=== PATIENT | male | born 1955 | race Caucasian/White ===

== ENCOUNTER 2017-03-15 20:29 | Inpatient (IN) | payer MEDICARE, OTHER ==
[~2017-03-15] VITALS: Ht 182.9 cm; Wt 76.2 kg
--- NOTE | 2017-03-15 20:35 | NUR ---
Medically cleared by Dr Honeycutt
[2017-03-15] MEDS ORDERED: TRIH2TAB4 PO (20:36)
[2017-03-15] MEDS ORDERED: DIVA250T4 PO (20:36)
[2017-03-15] MEDS ORDERED: LORA2TAB95 PO (20:36)
[2017-03-15] MEDS ORDERED: CHLO25TA13 PO (20:36)
--- NOTE | 2017-03-15 21:25 | NUR ---
[place] [facility]
--- NOTE | 2017-03-15 21:40 | NUR ---
GPS: 61 YEAR OLD CAUSATION MALE ADMITTED FROM ER [place]IA [place] TO MHU ROOM 145 A. ALERT AND ORIENTED X3,AMBULATORY. DX: PSYCHOSIS/DTS, ON 72 HRS HOLD. NO C/O PAIN OR DISCOMFORT THIS TIME.PATIENT IS ANXIOUS STATED I HAVE AUDITORY HALLUCINATION. I HEAR VOICES. DENIES SI THIS TIME. ATIVAN 1 MG GIVEN FOR ANXIETY.V/S WNL. CONTINUE MONITORING FOR SAFETY.
[2017-03-15] MEDS ORDERED: MAGNESIUM HYDROXIDE 30 ML LIQUID UDC PO PRN (21:45)
[2017-03-15] MEDS ORDERED: LORAZEPAM 0.5 MG TABLET PO PRN (21:45)
[2017-03-15] MEDS ORDERED: ACETAMINOPHEN 325 MG TABLET PO PRN (21:45)
--- NOTE | 2017-03-15 22:03 | NUR ---
gps: patient received from er very agitated hyperverbal to staff. ativan 1 mg po given.
[2017-03-15] MEDS ORDERED: LORAZEPAM 1 MG TABLET ONE (22:12)
[2017-03-15] MEDS ORDERED: TEMAZEPAM 7.5 MG CAPSULE ONE (22:13)
[2017-03-15 22:50] VITALS: BP 124/92
--- NOTE | 2017-03-15 23:03 | NUR ---
gps: patient is calm and cooperative. prn effective for agitation.
[2017-03-16] MEDS: MAG HYDROX/AL HYDROX/SIMETH 30 ML LIQUID UDC PO PRN ×2 (02:09→20:03)
[2017-03-16] MEDS ORDERED: MAG HYDROX/AL HYDROX/SIMETH 30 ML LIQUID UDC ONE (02:22)
--- NOTE | 2017-03-16 02:25 | NUR ---
gps: patient c/o abdominal pain.maalox 30 ml po given.
--- NOTE | 2017-03-16 03:25 | NUR ---
gps: patient stated i am feeling better .prn for abdominal effective.
--- NOTE | 2017-03-16 06:58 | NUR ---
GPS: REMAIN CALM AND COOPERATIVE WITH MEDS AND CARE. SHOWERED THIS MORNING. NO AGITATION NOTED CONTINUE PLAN OF CARE.
[2017-03-16 07:30] VITALS: BP 124/89
[2017-03-16] MEDS: LORAZEPAM 1 MG TABLET PO PRN ×2 (07:48→20:51)
--- NOTE | 2017-03-16 07:49 | NUR ---
GPS RN PT NOTED WITH INCREASE AGITATION. CAME UP TO NURSING STATION FIXATED ABOUT HIS BELONGINGS LEFT IN [facility]. UNABLE TO REDIRECT. ATIVAN 1MG GIVEN ORDERED. WILL CONTINUE TO MONITOR.
[2017-03-16] MEDS ORDERED: LORAZEPAM 1 MG TABLET ONE (08:02)
[2017-03-16 15:35] LABS: *BILIRUBIN,URIN NEGATIVE (NEGATIVE); *BLOOD, URINE NEGATIVE (NEGATIVE); *CLARITY,URINE SLIGHTLY CLOUDY (CLEAR); *COLOR,URINE YELLOW (YELLOW); *KETONES,URINE NEGATIVE (NEGATIVE); *PROTEIN,URINE NEGATIVE (NEGATIVE); *UROBILINOGEN,URINE 0.2 E.U./dl (NORMAL); LEUKOCYTE ESTERASE ,URINE NEGATIVE (NEGATIVE); NITRITE, URINE NEGATIVE (NEGATIVE); UGLUCOSE NEGATIVE (NEGATIVE)
[2017-03-16 16:08] LABS: MUCUS,URINE MODERATE /LPF (0-FEW); SQUAMOUS EPITHELIAL CELL,UR FEW /HPF (NONE SEEN); URINE AMORPHOUS PHOSPHATES MODERATE /HPF; WBC,URINE 0-3 /HPF (0-3)
[2017-03-16 16:53] VITALS: BP 114/81
--- NOTE | 2017-03-16 20:03 | NUR ---
GPS: RECEIVED PATIENT SITTING IN CHAIR NEAR THE NURSING STATION.C/O ABDOMINAL PAIN. MAALOX 30 ML PO GIVEN. PLEASANT UPON APPROACH. NO AGITATION NOTED.DENIES SI AT THIS TIME.CONTINUE MONITORING FOR SAFETY.
[2017-03-16 20:46] VITALS: BP 134/96
--- NOTE | 2017-03-16 20:51 | NUR ---
gps: patient screaming to staff saying i need help. i am sick.doctor not giving me medication. i want go home. ativan 1 mg po given for agitation per patient request.
[2017-03-16] MEDS: DIVALPROEX 250 MG TABLET.DR PO SCH (21:05)
[2017-03-16] MEDS: chlorproMAZINE 25 MG TABLET PO SCH (21:06)
[2017-03-16] MEDS: TRIHEXYPHENIDYL HCL 2 MG TABLET PO SCH ×3 (21:06→21:16)
[2017-03-16] MEDS ORDERED: chlorproMAZINE 25 MG TABLET ONE (21:17)
[2017-03-16] MEDS ORDERED: DIVALPROEX 250 MG TABLET.DR PO ONE (21:18)
[2017-03-16] MEDS ORDERED: TRIHEXYPHENIDYL HCL 2 MG TABLET ONE (21:18)
--- NOTE | 2017-03-16 21:51 | NUR ---
GPS: PATIENT IS CALM NOW. NO MORE AGITATION. PRN ATIVAN FOR AGITATION EFFECTIVE.
--- NOTE | 2017-03-17 06:36 | NUR ---
GPS: REMAIN CALM AND COOPERATIVE AFTER ATIVAN GIVEN X1. C/O ABDOMINAL PAIN X1 MAALOX 30 ML PO GIVEN AND EFFECTIVE. SLEPT 6 HRS THROUGH THE NIGHT. CONTINUE PLAN OF CARE.
[2017-03-17 07:24] LABS: BASOPHILS # (AUTO) 0.1 K/uL (0.0-8.0); BASOPHILS % (AUTO) 0.5 % (0.0-2.0); EOSINOPHILS # (AUTO) 0.2 K/uL (0.0-0.7); EOSINOPHILS % (AUTO) 1.8 % (0.0-7.0); HEMATOCRIT 35.9 % (36.7-47.1); HEMOGLOBIN 12.6 g/dL (12.5-16.3); LYMPHOCYTES # (AUTO) 2.3 K/uL (20.0-40.0); LYMPHOCYTES % (AUTO) 18.1 % (20.5-51.5); MEAN CORPUSCULAR HEMOGLOBIN 29.7 uug (23.8-33.4); MEAN CORPUSCULAR HGB CONC 35 g/dL (32.5-36.3); MEAN CORPUSCULAR VOLUME 84.7 fL (73.0-96.2); MONOCYTES # (AUTO) 0.7 K/uL (2.0-10.0); MONOCYTES % (AUTO) 5.3 % (0.0-11.0); NEUTROPHILS # (AUTO) 9.4 K/uL (1.8-8.9); NEUTROPHILS % (AUTO) 74.3 % (38.5-71.5); PLATELET COUNT (AUTO) 301 K/uL (152-348); RED BLOOD CELL COUNT(AUTO) 4.24 MIL/uL (4.06-5.63); WHITE BLOOD COUNT (AUTO) 12.6 K/uL (3.6-10.2)
[2017-03-17 07:30] VITALS: BP 98/60
[2017-03-17 07:39] LABS: BILIRUBIN,TOTAL 0.2 mg/dL (0.2-1.0); CREATININE 0.9 mg/dL (0.6-1.3); MAGNESIUM 2.2 mg/dL (1.8-2.4); PHOSPHOROUS 3.3 mg/dL (2.5-4.9); POTASSIUM 3.7 mmol/L (3.5-5.1); TOTAL PROTEIN, SERUM 6.9 g/dL (6.4-8.2)
[2017-03-17] MEDS: DIVALPROEX 250 MG TABLET.DR PO SCH ×4 (09:00→20:01)
[2017-03-17] MEDS: TRIHEXYPHENIDYL HCL 2 MG TABLET PO SCH ×4 (09:00→20:01)
[2017-03-17] MEDS: chlorproMAZINE 25 MG TABLET PO SCH ×4 (09:00→20:05)
[2017-03-17] MEDS: LORAZEPAM 1 MG TABLET PO PRN ×3 (09:07→23:30)
[2017-03-17 09:34] LABS: THYROID STIMULATING HORMONE 1.773 mIU/mL (0.358-3.740)
[2017-03-17] MEDS: MAG HYDROX/AL HYDROX/SIMETH 30 ML LIQUID UDC PO PRN (09:57)
[2017-03-17] MEDS: ONDANSETRON ODT 4 MG TAB.RAPDIS SL PRN ×2 (13:02→19:13)
[2017-03-17 16:45] VITALS: BP 113/78
[2017-03-17 20:25] VITALS: BP 97/72
--- NOTE | 2017-03-17 20:53 | NUR ---
PATIENT RECEIVED IN ACTIVITIES ROOM. PATIENT CALM AND COOPERATIVE. HYPERVERBAL BUT ABLE TO REDIRECT. NO AGGRESSIVE BEHAVIOR NOTED, HOWEVER IS UNPREDICTABLE WILL CONTINUE TO MONITOR AND REDIRECT NEEDED. PATIENT DENIES SI/AH/VH WILL CONTINUE TO MONITOR AND REDIRECT NEEDED. PATIENT DENIES PAIN AT THIS TIME, WILL CONTINUE TO MONITOR.
[2017-03-17] MEDS: TEMAZEPAM 7.5 MG CAPSULE PO PRN (22:26)
[2017-03-18] MEDS: ONDANSETRON ODT 4 MG TAB.RAPDIS SL PRN ×3 (01:25→20:14)
[2017-03-18] MEDS: MAG HYDROX/AL HYDROX/SIMETH 30 ML LIQUID UDC PO PRN ×2 (04:13→22:03)
[2017-03-18 07:30] VITALS: BP 111/70
[2017-03-18] MEDS: chlorproMAZINE 25 MG TABLET PO SCH ×3 (08:18→20:02)
[2017-03-18] MEDS: LORAZEPAM 1 MG TABLET PO PRN ×2 (08:18→13:55)
[2017-03-18] MEDS: DIVALPROEX 250 MG TABLET.DR PO SCH ×3 (08:18→20:02)
[2017-03-18] MEDS: TRIHEXYPHENIDYL HCL 2 MG TABLET PO SCH ×3 (08:19→20:02)
--- NOTE | 2017-03-18 13:38 | NUR ---
Initial DC Plan: Patient reported that he currently resides at his girlfriend's apartment [[address] [place] [address]] and plans to return there. SW will follow up with MD and patient to discuss most appropriate discharge plans. SW will form a safe and proper discharge.
--- NOTE | 2017-03-18 14:04 | NUR ---
Regulatory Auditor: Blood Bank Laboratory Professional submitted Firearms Mental Health Report to [employer]J on 03/18.
[2017-03-18] MEDS: MULTIVITAMINS,THERAPEUTIC TABLET PO SCH (14:48)
[2017-03-18 17:13] VITALS: BP 110/75
[2017-03-18] MEDS: HYDROCODONE/APAP 5-325MG TABLET PO PRN (18:37)
[2017-03-18 20:32] VITALS: BP 119/64
[2017-03-18] MEDS: TEMAZEPAM 7.5 MG CAPSULE PO PRN (22:38)
[2017-03-19] MEDS: LORAZEPAM 1 MG TABLET PO PRN ×2 (03:55→08:30)
[2017-03-19] MEDS: MAG HYDROX/AL HYDROX/SIMETH 30 ML LIQUID UDC PO PRN ×2 (07:26→20:00)
[2017-03-19 07:54] VITALS: BP 104/74
[2017-03-19] MEDS: MULTIVITAMINS,THERAPEUTIC TABLET PO SCH (08:31)
[2017-03-19] MEDS: chlorproMAZINE 25 MG TABLET PO SCH ×3 (08:31→20:02)
[2017-03-19] MEDS: HYDROCODONE/APAP 5-325MG TABLET PO PRN (08:31)
[2017-03-19] MEDS: DIVALPROEX 250 MG TABLET.DR PO SCH ×3 (08:31→20:01)
[2017-03-19] MEDS: ONDANSETRON ODT 4 MG TAB.RAPDIS SL PRN ×2 (08:31→20:03)
[2017-03-19] MEDS: TRIHEXYPHENIDYL HCL 2 MG TABLET PO SCH ×3 (08:32→20:08)
[2017-03-19 16:47] VITALS: BP 110/66
[2017-03-19 20:00] VITALS: BP 119/82
[2017-03-20] MEDS: MAG HYDROX/AL HYDROX/SIMETH 30 ML LIQUID UDC PO PRN ×2 (00:45→03:54)
[2017-03-20] MEDS: ONDANSETRON ODT 4 MG TAB.RAPDIS SL PRN (02:06)
--- NOTE | 2017-03-20 06:05 | NUR ---
Patient continue complaining of nausea, Zofran 4mg PO PRN was given at approx 2000 last night 03/19/17. After an hour Pt stated that he felt "better". Then at approx 0200, he complained of nausea and vomiting. Zofran 4mg PO PRN was given at approx 0200. After one hour nausea and vomiting stopped; however, at approx 0430 patient continue complaining of nausea and vomiting. Mylanta PO PRN was given. His V/S: B/P 108/62; pulse 78; respiration 18; oral temp 97.3F and SPO2 94%. He aslo had a formed BM. and he stated having mild abdominal discomfort. Dr. Martinez, who was the doctor property preservation specialist, was notify of findings at approx 0555 and received a call back at approx 0600 and new order were given to administer Reglan 5mg PO Q6HRS PRN for nausea and vomiting. order were noted. awaiting for pharmacy to verify new order.
[2017-03-20] MEDS ORDERED: METOCLOPRAMIDE HCL 5 MG TABLET PO PRN (06:15)
[2017-03-20] MEDS ORDERED: METOCLOPRAMIDE HCL 10 MG TABLET ONE (06:55)
[2017-03-20 07:30] VITALS: BP 116/87
[2017-03-20] MEDS: TRIHEXYPHENIDYL HCL 2 MG TABLET PO SCH ×3 (08:00→21:42)
[2017-03-20] MEDS: chlorproMAZINE 25 MG TABLET PO SCH ×3 (08:00→21:42)
[2017-03-20] MEDS: MULTIVITAMINS,THERAPEUTIC TABLET PO SCH (08:00)
[2017-03-20] MEDS: DIVALPROEX 250 MG TABLET.DR PO SCH ×3 (08:01→21:41)
[2017-03-20] MEDS: LORAZEPAM 1 MG TABLET PO PRN (10:40)
--- NOTE | 2017-03-20 14:45 | NUR ---
DR GARCES PAGED, AWAITING CALL BACK.
--- NOTE | 2017-03-20 15:15 | NUR ---
DR SANCHES ON UNIT TO SEE A DIFFERENT PT, AND TRACEY IS ARGUING WITH DR SANCHES, POSTURING, VERBALLY THREATENING OTHERS, NOT REDIRECTABLE. DR SANCHES GAVE ORDER FOR IM, GIVEN PER P/P.
[2017-03-20] MEDS ORDERED: diphenhydrAMINE 50 MG/1 ML VIAL IM STA (15:26)
[2017-03-20] MEDS ORDERED: OLANZAPINE 10 MG VIAL IM STA (15:26)
[2017-03-20] MEDS ORDERED: LORAZEPAM 2 MG/1 ML VIAL IM STA (15:26)
--- NOTE | 2017-03-20 15:30 | NUR ---
Pt noted to be highly agitated and confused. Refusing to let go of lunch tray which he hasn't touched. Screaming/yelling, highly unpredictable, unredirectable, at nurses station verbally abusive towards staff. Posturing at staff threatening violence. Obtained IM order. Noted and will carry out.
[2017-03-20 15:57] VITALS: BP 105/60
[2017-03-20 20:39] VITALS: BP 108/76
--- NOTE | 2017-03-21 06:51 | NUR ---
PATIENT SLEPT FOR APPROX 9 HRS THROUGH THE NIGHT. HE WAS NOTED CALM AT THIS TIME. SHOWER WAS OFFERED THIS MORNING; HOWEVER, HE REFUSED. HE SAID "LATER"
[2017-03-21 07:30] VITALS: BP 113/81
[2017-03-21] MEDS: chlorproMAZINE 25 MG TABLET PO SCH ×3 (10:32→21:04)
[2017-03-21] MEDS: TRIHEXYPHENIDYL HCL 2 MG TABLET PO SCH ×3 (10:32→21:03)
[2017-03-21] MEDS: DIVALPROEX 250 MG TABLET.DR PO SCH ×3 (10:32→21:03)
[2017-03-21] MEDS: MULTIVITAMINS,THERAPEUTIC TABLET PO SCH (10:32)
[2017-03-21] MEDS: ONDANSETRON ODT 4 MG TAB.RAPDIS SL PRN (10:39)
--- NOTE | 2017-03-21 10:40 | NUR ---
PATIENT COMPLAINED OF NAUSEA MEDICATED WITH ZOFRAN ORDERED AND WILL OBSERVE.
[2017-03-21 15:00] VITALS: BP 109/80
[2017-03-21] MEDS: LORAZEPAM 1 MG TABLET PO PRN (17:51)
--- NOTE | 2017-03-21 18:16 | NUR ---
GETTING AGITATED PACING TRYING TO MAKE CALLS MEDICATED WITH ATIVAN ORDERED WILL CONTINUE TO OBSERVE.
[2017-03-21 20:45] VITALS: BP 109/80
[2017-03-21] MEDS: HYDROCODONE/APAP 5-325MG TABLET PO PRN (21:16)
--- NOTE | 2017-03-21 22:00 | NUR ---
received to care, isolative, but pleasant upon approach. PRN norco was given at 2115, for lower abdominal pain 12/20. as of 2199, he appears to be asleep. no distress noted. will continue to monitor closely.
--- NOTE | 2017-03-22 06:00 | NUR ---
slept 6.5 hours. continues to sleep. no distress noted.
[2017-03-22 07:30] VITALS: BP 108/69
[2017-03-22] MEDS: MULTIVITAMINS,THERAPEUTIC TABLET PO SCH (08:48)
[2017-03-22] MEDS: TRIHEXYPHENIDYL HCL 2 MG TABLET PO SCH ×3 (08:48→20:31)
[2017-03-22] MEDS: chlorproMAZINE 25 MG TABLET PO SCH ×3 (08:48→20:32)
[2017-03-22] MEDS: DIVALPROEX 250 MG TABLET.DR PO SCH ×2 (08:48→13:29)
[2017-03-22 15:00] VITALS: BP 121/86
[2017-03-22 19:51] VITALS: BP 118/76
[2017-03-22] MEDS: DIVALPROEX 500 MG TABLET.DR PO SCH (20:32)
[2017-03-22] MEDS: HYDROCODONE/APAP 10-325 MG TABLET PO PRN (20:36)
--- NOTE | 2017-03-22 22:00 | NUR ---
received to care, pleasant, but isolative. PRN norco was given at 2035, for lower abdominal pain 12/20. as of 2199, he appears to be asleep. no distress noted. will continue to monitor closely.
[2017-03-23] MEDS: HYDROCODONE/APAP 10-325 MG TABLET PO PRN ×4 (03:04→23:31)
--- NOTE | 2017-03-23 06:00 | NUR ---
slept 5.5 hours total. assisted with AM care, and shower. no distress noted.
[2017-03-23 07:30] VITALS: BP 125/82
[2017-03-23] MEDS: MULTIVITAMINS,THERAPEUTIC TABLET PO SCH (08:11)
[2017-03-23] MEDS: TRIHEXYPHENIDYL HCL 2 MG TABLET PO SCH ×3 (08:11→20:30)
[2017-03-23] MEDS: DIVALPROEX 250 MG TABLET.DR PO SCH ×2 (08:11→12:36)
[2017-03-23] MEDS: chlorproMAZINE 25 MG TABLET PO SCH ×3 (08:11→20:29)
[2017-03-23] MEDS: MAG HYDROX/AL HYDROX/SIMETH 30 ML LIQUID UDC PO PRN (12:36)
[2017-03-23 20:16] VITALS: BP 120/70
[2017-03-23] MEDS: DIVALPROEX 500 MG TABLET.DR PO SCH (20:29)
--- NOTE | 2017-03-23 22:00 | NUR ---
received to care, mostly isolating in room, interacting with select peers and staff, pleasant upon approach. compliant with medications and staff direction, including limit setting. as of 2200, he appears to be asleep. no distress noted. will continue to monitor closely.
--- NOTE | 2017-03-23 23:31 | NUR ---
PRN norco given for lower abdominal pain 11/19.
[2017-03-24] MEDS: HYDROCODONE/APAP 10-325 MG TABLET PO PRN (05:34)
--- NOTE | 2017-03-24 06:00 | NUR ---
slept 5.5 hours total. no distress noted.
[2017-03-24 07:30] VITALS: BP 124/80
[2017-03-24] MEDS: LORAZEPAM 1 MG TABLET PO PRN (08:30)
[2017-03-24] MEDS: DIVALPROEX 250 MG TABLET.DR PO SCH ×2 (08:35→12:17)
[2017-03-24] MEDS: chlorproMAZINE 25 MG TABLET PO SCH ×3 (08:35→20:19)
[2017-03-24] MEDS: TRIHEXYPHENIDYL HCL 2 MG TABLET PO SCH ×3 (08:35→20:19)
[2017-03-24] MEDS: MULTIVITAMINS,THERAPEUTIC TABLET PO SCH (08:35)
[2017-03-24] MEDS: HYDROCODONE/APAP 5-325MG TABLET PO PRN ×2 (12:18→18:19)
[2017-03-24 16:45] VITALS: BP 101/63
[2017-03-24 19:49] VITALS: BP 102/69
[2017-03-24] MEDS: DIVALPROEX 500 MG TABLET.DR PO SCH (20:20)
[2017-03-24] MEDS: TEMAZEPAM 7.5 MG CAPSULE PO PRN (22:59)
--- NOTE | 2017-03-24 22:59 | NUR ---
PRN restoril given for insomnia.
--- NOTE | 2017-03-24 23:30 | NUR ---
appears to be asleep. no distress noted.
[2017-03-25] MEDS: HYDROCODONE/APAP 5-325MG TABLET PO PRN ×2 (01:01→08:22)
--- NOTE | 2017-03-25 01:01 | NUR ---
PRN norco given for lower abdominal pain 12/20.
--- NOTE | 2017-03-25 01:30 | NUR ---
appears to be asleep. no distress noted.
--- NOTE | 2017-03-25 05:00 | NUR ---
slept 6.5 hours, total. is now awake, demanding norco. he was told that it was not due yet, and he became verbally abusive, insulting staff, and attempting to split staff. he mentioned last night that he wanted to have his discharge postponed, because he doesnt have any norco. now he is being disruptive, and demanding that the doctor give him an injection. limits set on behavior. will continue to monitor closely.
--- NOTE | 2017-03-25 06:00 | NUR ---
pt is calmer, now. requested to take a shower, so staff set the shower up for him. he then stated he didnt want to shower, "i just wanted to make that fat fker do extra work" a few minutes later, he stated he was going to report staff for refusing to let him shower.
[2017-03-25 07:30] VITALS: BP 110/79
[2017-03-25] MEDS: TRIHEXYPHENIDYL HCL 2 MG TABLET PO SCH (08:21)
[2017-03-25] MEDS: DIVALPROEX 250 MG TABLET.DR PO SCH (08:22)
[2017-03-25] MEDS: MULTIVITAMINS,THERAPEUTIC TABLET PO SCH (08:22)
[2017-03-25] MEDS: LORAZEPAM 1 MG TABLET PO PRN (08:22)
[2017-03-25] MEDS: chlorproMAZINE 25 MG TABLET PO SCH (08:22)
--- NOTE | 2017-03-25 10:01 | NUR ---
DC Note: Patient will be discharged to his girlfriend's home [[address] [place] [address]] via taxi at 1pm. SW spoke with patient's girlfriend Alexandra [[phone]] who is aware and agreeable to discharge plans. Patient is aware and agreeable to discharge plans. Patient was referred to [facility] [phone] for Clinical Faculty referrals. Patient was provided with outpatient mental health resources to [facility] , [facility] , and the [place] Suicide Prevention Lifeline . Patient was also provided a list of referrals for outpatient psychiatrists including Dr. Hodges [[phone]], Dr. Luciano [[phone]], and Dr. Abreu [[phone]]. Patient was provided a brief substance abuse intervention. He was provided outpatient substance abuse referrals to [facility] [[phone]], [facility] for Drug and Alcohol Abuse [[phone]]. and [facility] [[phone]]. Patient was encouraged to present at [facility] on 03/26 at 10am for intake.
--- NOTE | 2017-03-25 11:07 | NUR ---
GPS: Nursing Notes: Discharge Notes: Patient is awake and responding to his name, cooperative with nursing care, compliant with his medications, denies any SI/HI, denies any AH/VH, denies any pain or discomfort, denies any SOB, discharge to his girlfriend's home (Alexandra) at [address], [place] [address] , prescription and instructions given to patient, transported via [employer] taxi, took all his belongings with him. Patient was referred to [facility] [phone] for Hybrid Derivatives Trader referrals. Patient was provided with outpatient mental health resources to [facility] Crisis Line , [facility] , and the [place] Suicide Prevention Lifeline . Patient was also provided a list of referrals for outpatient psychiatrists including Dr. Hodges [[phone]], Dr. Luciano [[phone]], and Dr. Abreu [[phone]]. Patient was provided a brief substance abuse intervention. He was provided outpatient substance abuse referrals to [facility] [[phone]], [facility] for Drug and Alcohol Abuse [[phone]]. and [facility] [employer] [facility] [[phone]]. Patient was encouraged to present at [facility] on 03/26 at 10am for intake.
== END 2017-03-25 11:00 | disposition home or self-care (01) | DRG 885 ==
LOC: ER 20:29 → GPS 21:19
PROVIDERS: ADMIT Psychiatry & Neurology Psychiatry; ATTEND Internal Medicine
DX: F25.1 Schizoaffective disorder, depressive type (principal); E88.09 Other disorders of plasma-protein metabolism, not elsewhere classified; K57.92 Diverticulitis of intestine, part unspecified, without perforation or abscess without bleeding; F14.10 Cocaine abuse, uncomplicated; K40.90 Unilateral inguinal hernia, without obstruction or gangrene, not specified as recurrent; K44.9 Diaphragmatic hernia without obstruction or gangrene; Z87.81 Personal history of (healed) traumatic fracture; Z91.5 Personal history of self-harm; Z79.899 Other long term (current) drug therapy; K59.00 Constipation, unspecified; D72.829 Elevated white blood cell count, unspecified; N40.0 Benign prostatic hyperplasia without lower urinary tract symptoms
CPT/HCPCS: 36415; 71010; 74000; 80164; 83735; 84100; 84153; 84443; 85025; 87086; 93005; A4663; J1200; J2060; J2358; J3490; J8597; Q0161; Q0162

== ENCOUNTER 2017-05-24 14:30 | Inpatient (IN) | payer MEDICARE, OTHER ==
[~2017-05-24] VITALS: Ht 182.9 cm; Wt 77.1 kg
--- NOTE | 2017-05-24 14:40 | NUR ---
Pt was triaged, pt is in hallway in t ambulance [facility] as there are no ER beds available at this time.
[2017-05-24] MEDS ORDERED: LORA-258 PO (14:54)
[2017-05-24] MEDS ORDERED: TRIH2TAB4 PO (14:54)
[2017-05-24] MEDS ORDERED: DIVA250T4 PO (14:54)
[2017-05-24] MEDS ORDERED: CHLO25TA13 PO (14:54)
--- NOTE | 2017-05-24 17:30 | NUR ---
hospital tray provided per pt request. pt finished with good apetite
--- NOTE | 2017-05-24 18:24 | NUR ---
pt transfered to floor in stable condition
[2017-05-24 18:35] VITALS: BP 97/56
[2017-05-24 18:37] VITALS: BP 97/56
[2017-05-24] MEDS ORDERED: ACETAMINOPHEN 325 MG TABLET PO PRN (18:45)
[2017-05-24] MEDS ORDERED: MAGNESIUM HYDROXIDE 30 ML LIQUID UDC PO PRN (18:45)
--- NOTE | 2017-05-24 18:46 | NUR ---
1830RECEIVED PATIENT FROM ER PER W/C ALERT AND OX2, ABLE TO VERBALIZED NEEDS. RESPIRATION EVEN AN UNLABORED NO S/S ACUTE DISTRESS V/STAKEN AND RECORDED. PATIENT CALM AND COOPERATIVE WHEN CARE RENDERED. PATIENT AMBULTE INDEPENDENTLY WITHOUT RELOCATION SERVICES SPECIALIST, USE RESTROOM VOIDING FREELY. 184 DINNER SERVED WITH SANDWICH AND 2 8 OZ OF MILK. 1900 REPORT GIVEN TO NEXT SHIFT .
[2017-05-24] MEDS: LORAZEPAM 0.5 MG TABLET PO PRN (20:56)
--- NOTE | 2017-05-24 20:59 | NUR ---
GPS: PATIENT C/O ANXIETY. ATIVAN 0.5 MG PO GIVEN FOR ANXIETY.
--- NOTE | 2017-05-24 22:00 | NUR ---
GPS: PATIENT IS CALM NOW. PRN FOR ANXIETY EFFECTIVE.
[2017-05-25] MEDS: MAG HYDROX/AL HYDROX/SIMETH 30 ML LIQUID UDC PO PRN (03:10)
--- NOTE | 2017-05-25 06:14 | NUR ---
GPS: REMAIN CALM AND COOPERATIVE WITH MEDICATION AND CARE. C/O ABDOMINAL PAIN. MYLANTA 30 ML PO GIVEN.AND EFFECTIVE. SLEPT 07:30 HRS THROUGH THE NIGHT.
[2017-05-25 07:30] VITALS: BP 121/70
[2017-05-25] MEDS: chlorproMAZINE 25 MG TABLET PO SCH ×4 (13:00→17:31)
[2017-05-25] MEDS ORDERED: DIVALPROEX ER 250 MG TAB.SR.24H PO SCH (13:00)
[2017-05-25] MEDS ORDERED: TRIHEXYPHENIDYL HCL 5 MG TABLET PO SCH ×2 (13:40→18:00)
[2017-05-25] MEDS ORDERED: TRIHEXYPHENIDYL HCL 2 MG TABLET PO SCH (13:46)
[2017-05-25] MEDS: DIVALPROEX 250 MG TABLET.DR PO SCH ×2 (13:52→17:31)
[2017-05-25] MEDS: TRIHEXYPHENIDYL HCL 2 MG TABLET PO SCH ×2 (14:04→17:30)
[2017-05-25] MEDS: HYDROCODONE/APAP 5-325MG TABLET PO PRN ×2 (15:04→21:04)
--- NOTE | 2017-05-25 15:43 | NUR ---
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
[2017-05-25 16:45] VITALS: BP 123/66
[2017-05-25 20:14] VITALS: BP 117/71
[2017-05-25] MEDS: TEMAZEPAM 7.5 MG CAPSULE PO PRN (22:52)
[2017-05-26] MEDS: LORAZEPAM 0.5 MG TABLET PO PRN ×4 (00:51→17:15)
[2017-05-26] MEDS: HYDROCODONE/APAP 5-325MG TABLET PO PRN ×5 (03:04→21:16)
[2017-05-26 07:16] LABS: BASOPHILS % (AUTO) 0.8 % (0.0-2.0); BILIRUBIN,TOTAL 0.1 mg/dL (0.2-1.0); CREATININE 0.8 mg/dL (0.6-1.3); HEMATOCRIT 28.7 % (36.7-47.1); HEMOGLOBIN 9.4 g/dL (12.5-16.3); MEAN CORPUSCULAR HEMOGLOBIN 26.2 uug (23.8-33.4); MEAN CORPUSCULAR HGB CONC 33 g/dL (32.5-36.3); MEAN CORPUSCULAR VOLUME 79.8 fL (73.0-96.2); MONOCYTES % (AUTO) 10.3 % (0.0-11.0); NEUTROPHILS % (AUTO) 61.9 % (38.5-71.5); PHOSPHOROUS 4.1 mg/dL (2.5-4.9); PLATELET COUNT (AUTO) 283 K/uL (152-348); POTASSIUM 4.2 mmol/L (3.5-5.1); TOTAL PROTEIN, SERUM 5.9 g/dL (6.4-8.2)
[2017-05-26 07:17] LABS: BASOPHILS # (AUTO) 0.1 K/uL (0.0-8.0); EOSINOPHILS # (AUTO) 0.3 K/uL (0.0-0.7); LYMPHOCYTES # (AUTO) 1.5 K/uL (20.0-40.0); MONOCYTES # (AUTO) 0.7 K/uL (2.0-10.0)
[2017-05-26 07:30] VITALS: BP_SYST 107; BP_SYST 121; BP_DIAS 69; BP_DIAS 76
[2017-05-26 07:31] LABS: WHITE BLOOD COUNT (AUTO) 6.5 K/uL (3.6-10.2)
[2017-05-26 08:49] LABS: THYROID STIMULATING HORMONE 1.814 mIU/mL (0.358-3.740)
[2017-05-26] MEDS: chlorproMAZINE 25 MG TABLET PO SCH ×3 (08:50→17:17)
[2017-05-26] MEDS: DIVALPROEX 250 MG TABLET.DR PO SCH ×3 (08:50→17:14)
[2017-05-26] MEDS: TRIHEXYPHENIDYL HCL 2 MG TABLET PO SCH ×3 (08:50→17:14)
[2017-05-26 11:57] LABS: IRON, SERUM 12 ug/dL (50-175)
[2017-05-26] MEDS: MULTIVITAMINS,THERAPEUTIC TABLET PO SCH (12:48)
[2017-05-26] MEDS: FERROUS SULFATE 325 MG TABEC PO SCH ×2 (14:01→21:15)
[2017-05-26 16:11] VITALS: BP 99/54
[2017-05-26] MEDS ORDERED: PNEUMOCOCCAL 23-VAL P-SAC VAC 0.5 ML VIAL IM ONE (18:00)
[2017-05-26] MEDS ORDERED: INFLUENZA VACCINE 2017-2018 0.5 ML DISP.SYRIN IM ONE (18:00)
[2017-05-26 20:00] VITALS: BP 110/67
--- NOTE | 2017-05-26 21:30 | NUR ---
RECEIVED PATIENT IN THE DAY ROOM WATCHING TV. HE IS A/O X 2. ABLE TO MAKE HIS NEEDS KNOW AND ABLE TO WALK WITH STEADY GAIT. PATIENT PRESENTS WITH SI. HE STATED, " SI, IT IS ALWAYS IN MY MIND." HE DENIES HAVING A PLAN AND HE IS ABLE TO CFS. HE STATED, "I AM THANKFUL FOR THIS HOSPITAL, IT HAS SAVE ME FORM KILLING MYSELF AND IT HAS HELP ME A LOT". "I FEEL SAVE HERE. I AM OKAY TO BE HERE IN A 14 DAYS HOLD". PT DENIES AH OR VH AT THIS TIME. PATIENT C/O ABDOMINAL HERNIA PAIN 11/19. NORCO 5/350 WAS GIVEN AT APPROX 2120. WILL CONTINUE TO MONITOR.
[2017-05-27] MEDS: HYDROCODONE/APAP 5-325MG TABLET PO PRN ×6 (01:35→21:01)
--- NOTE | 2017-05-27 01:37 | NUR ---
PT AWAKE IN THE HALLWAY, C/O CHRONIC ABDOMINAL HERNIA PAIN 11/19. REQUESTING PAIN MEDICATION. NORCO 5/325MG PO PRN WAS GIVEN NOW. WILL CONTINUE TO MONITOR.
--- NOTE | 2017-05-27 07:16 | NUR ---
PATIENT SLEPT FOR APPROX 7.00HRS THROUGH THE NIGHT. HE WAS NOTED DEMANDING, NEEDY, AND SARCASTIC.
[2017-05-27 07:30] VITALS: BP 103/65
[2017-05-27] MEDS: TRIHEXYPHENIDYL HCL 2 MG TABLET PO SCH ×3 (09:07→17:01)
[2017-05-27] MEDS: chlorproMAZINE 25 MG TABLET PO SCH ×3 (09:07→17:00)
[2017-05-27] MEDS: LORAZEPAM 0.5 MG TABLET PO PRN ×3 (09:07→17:00)
[2017-05-27] MEDS: DIVALPROEX 250 MG TABLET.DR PO SCH ×3 (09:07→17:00)
[2017-05-27] MEDS: MULTIVITAMINS,THERAPEUTIC TABLET PO SCH (09:08)
[2017-05-27] MEDS: FERROUS SULFATE 325 MG TABEC PO SCH ×2 (09:08→21:00)
--- NOTE | 2017-05-27 13:52 | NUR ---
Initial DC Plan: Patient currently lives at home with his girlfriend Alexandra [[address] [place] [address]]. Patient stated that he would like to return there upon discharge. SW will follow up with MD and patient to discuss most appropriate discharge plans. Patient will be provided a brief substance abuse intervention. SW will form a safe and proper discharge.
--- NOTE | 2017-05-27 14:03 | NUR ---
Firearms Reporting: KEV submitted Mental Health Report to [employer]J on 05/27.
[2017-05-27 17:04] VITALS: BP 103/69
[2017-05-27 20:19] VITALS: BP 110/64
[2017-05-27] MEDS: MAG HYDROX/AL HYDROX/SIMETH 30 ML LIQUID UDC PO PRN (22:19)
[2017-05-28] MEDS: HYDROCODONE/APAP 5-325MG TABLET PO PRN ×6 (01:01→21:40)
[2017-05-28 07:30] VITALS: BP 117/71
[2017-05-28] MEDS: TRIHEXYPHENIDYL HCL 2 MG TABLET PO SCH ×3 (09:26→17:38)
[2017-05-28] MEDS: chlorproMAZINE 25 MG TABLET PO SCH ×3 (09:26→17:38)
[2017-05-28] MEDS: LORAZEPAM 0.5 MG TABLET PO PRN ×3 (09:27→17:38)
[2017-05-28] MEDS: DIVALPROEX 250 MG TABLET.DR PO SCH ×3 (09:27→17:38)
[2017-05-28] MEDS: MULTIVITAMINS,THERAPEUTIC TABLET PO SCH (09:27)
[2017-05-28] MEDS: FERROUS SULFATE 325 MG TABEC PO SCH ×2 (09:27→21:39)
[2017-05-28 15:00] VITALS: BP 114/73
[2017-05-28 20:54] VITALS: BP 98/66
[2017-05-29] MEDS: HYDROCODONE/APAP 5-325MG TABLET PO PRN ×5 (01:46→23:15)
--- NOTE | 2017-05-29 06:50 | NUR ---
Pt AWOKE AT AROUND 0530 AND TOOK A SHOWER. 2 RNs WERE CHANGING HIS LINENS AND THROWING OUT OLD FOOD Pt WAS FOUND TO BE HOARDING. A LARGE AMOUNT OF MARIE IN THE TOTAL OF $82.75 WAS FOUND HIDDEN IN HIS PILLOW CASE. MONEY WAS TAKEN FROM HIS ROOM WITH THIS RN AND PHILLY DAS. MARIE WAS INVENTORIED WITH PAULA HAMMONDS RN. AFTER Pt's SHOWER, HE WAS TOLD WHAT WAS FOUND, AND Pt BECAME EXTREMELY ANGRY, AGITATED, AND LABILE-INITIALLY REFUSED TO SIGN, YELLING, AND DEMANDING WASH TOWELS, AMONG OTHER THINGS, BUT Pt AGREED TO THE AMOUNT OF $82.75. Pt THEN CAME BACK A FEW MINUTES LATER AND SIGNED, MARIE PLACED IN [employer] LOCKER.
[2017-05-29 08:00] VITALS: BP 110/80
[2017-05-29] MEDS: MULTIVITAMINS,THERAPEUTIC TABLET PO SCH (08:44)
[2017-05-29] MEDS: DIVALPROEX 250 MG TABLET.DR PO SCH ×3 (08:44→16:53)
[2017-05-29] MEDS: FERROUS SULFATE 325 MG TABEC PO SCH ×2 (08:45→21:06)
[2017-05-29] MEDS: TRIHEXYPHENIDYL HCL 2 MG TABLET PO SCH ×3 (08:45→16:53)
[2017-05-29] MEDS: LIDOCAINE 5% PATCH TD SCH (08:45)
[2017-05-29] MEDS: chlorproMAZINE 25 MG TABLET PO SCH ×3 (08:45→16:52)
--- NOTE | 2017-05-29 13:05 | NUR ---
Group Note: S: "It is one day at a time." O: Patient presented as cooperative with intense eye contact. Pt also presented as reserved due to him moving his chair further from the group. Pt was very friendly and gave compliments to other group members which helped build rapport in the group. A: Pt was engaged throughout the session. Pt was unable to answer questions unless prompted. Pt would go off topic. Pt gained insight into self-care activities such as music and mindfulness. Pt was acknowledged that he had similarities with other group members and that he wasn't alone. P: Patient will remain in the milieu and medication will be continued. Pt will practice self-care.
[2017-05-29 16:00] VITALS: BP 93/60
--- NOTE | 2017-05-29 17:00 | NUR ---
PATIENT WAS MEDICATED WITH NORCO TWO TIMES TODAY PER HIS REQUEST AND WAS HELPFUL.COMPLIANT WITH MEDICATIONS AND CARE .
[2017-05-29 20:20] VITALS: BP 110/82
--- NOTE | 2017-05-29 22:00 | NUR ---
received to care, highly visible on unit, pleasant upon approach. compliant with medications and staff direction. as of 2199, he remains awake, in bed. c/o lower abdominal pain 12/20. calmly awaiting the next norco dose. no distress noted. will continue to monitor closely.
--- NOTE | 2017-05-29 23:15 | NUR ---
PRN norco given for 8/10 lower abdominal pain.
--- NOTE | 2017-05-29 23:45 | NUR ---
appears to be asleep. no distress noted.
[2017-05-30] MEDS: MAG HYDROX/AL HYDROX/SIMETH 30 ML LIQUID UDC PO PRN (03:15)
[2017-05-30] MEDS: HYDROCODONE/APAP 5-325MG TABLET PO PRN ×3 (05:20→22:09)
[2017-05-30 07:30] VITALS: BP 107/62
--- NOTE | 2017-05-30 07:45 | NUR ---
THE LAB PACKAGE CHECKER HERE TO DRAW BLOOD FOR DEPAKOTE LEVEL ORDERED BY THE PSYCHIATRIST PATIENT REFUSED DESPITE EXPLAINATION BY TWO NURSES STATED THAT THE DOCTOR NEEDED TO INFORM HIM HIMSELF BEFORE ORDERING ANY TESTS.PATIENTS RIGHT TO REFUSE RESPECTED. WILL INFORM DR GARCES.
[2017-05-30] MEDS: chlorproMAZINE 25 MG TABLET PO SCH ×3 (08:19→16:03)
[2017-05-30] MEDS: TRIHEXYPHENIDYL HCL 2 MG TABLET PO SCH ×3 (08:19→16:03)
[2017-05-30] MEDS: LIDOCAINE 5% PATCH TD SCH (08:19)
[2017-05-30] MEDS: MULTIVITAMINS,THERAPEUTIC TABLET PO SCH (08:19)
[2017-05-30] MEDS: DIVALPROEX 250 MG TABLET.DR PO SCH ×3 (08:19→16:03)
[2017-05-30] MEDS: FERROUS SULFATE 325 MG TABEC PO SCH ×2 (08:19→20:17)
--- NOTE | 2017-05-30 11:31 | NUR ---
PATIENT IS ALERT CONTINENT GOES TO THE BATHROOM BY HIMSELF HAS BEEN UNABLE TO PROVIDE STOOL SPECIMEN EVEN THOUGH HE IA AWARE THAT THE DOCTOR ORDERED STOOL FOR OB AND A HAT WAS PROVIDED FOR THE COLLECTION OF THE STOOL SPECIMEN
--- NOTE | 2017-05-30 12:03 | NUR ---
PATIENT FINALLY ALLOWED BLOOD DRAW AND DEPAKOTE LEVEL IS 24.0 LOW WILL INFORM .
[2017-05-30 15:00] VITALS: BP 101/66
--- NOTE | 2017-05-30 16:04 | NUR ---
REQUESTED FOR PAIN MEDICATIONS AND ADMINISTERED ORDERED.
--- NOTE | 2017-05-30 18:00 | NUR ---
COMPLIANT WITH MEDICATIONS AND CARE THIS SHIFT.
[2017-05-30 20:00] VITALS: BP 110/65
--- NOTE | 2017-05-30 22:00 | NUR ---
received to care, pleasant upon approach. compliant with medications and staff direction. as of 2199, he remains awake, in bed. c/o lower abdominal pain 8/. calmly awaiting the next norco dose. no distress noted. will continue to monitor closely.
--- NOTE | 2017-05-30 22:09 | NUR ---
PRN norco given for lower abdominal pain 12/20
--- NOTE | 2017-05-30 23:00 | NUR ---
appears to be asleep. no distress noted.
[2017-05-31] MEDS: HYDROCODONE/APAP 5-325MG TABLET PO PRN ×4 (04:09→23:49)
--- NOTE | 2017-05-31 06:00 | NUR ---
slept 8.5 hours, total. continues to sleep. no distress noted.
[2017-05-31 07:30] VITALS: BP_SYST 124; BP_SYST 157; BP_DIAS 62; BP_DIAS 73
[2017-05-31] MEDS: chlorproMAZINE 25 MG TABLET PO SCH ×3 (08:50→16:54)
[2017-05-31] MEDS: TRIHEXYPHENIDYL HCL 2 MG TABLET PO SCH ×3 (08:51→18:04)
[2017-05-31] MEDS: DIVALPROEX 500 MG TABLET.DR PO SCH ×2 (08:51→20:27)
[2017-05-31] MEDS: MULTIVITAMINS,THERAPEUTIC TABLET PO SCH (08:51)
[2017-05-31] MEDS: FERROUS SULFATE 325 MG TABEC PO SCH ×2 (08:51→20:27)
[2017-05-31] MEDS: LIDOCAINE 5% PATCH TD SCH (08:52)
[2017-05-31] MEDS ORDERED: DIVALPROEX 250 MG TABLET.DR PO SCH (13:00)
[2017-05-31 15:00] VITALS: BP 95/54
--- NOTE | 2017-05-31 15:16 | NUR ---
Gps/Club Car Attendant- Conversat, had been cooperative and redirectable, making his needs known, verbalized pain on his left knee, noted old surgical scar, refused lidoderrm patch
[2017-05-31 20:21] VITALS: BP 101/67
[2017-05-31] MEDS: MAG HYDROX/AL HYDROX/SIMETH 30 ML LIQUID UDC PO PRN (20:47)
--- NOTE | 2017-05-31 22:00 | NUR ---
received to care, pleasant upon approach. compliant with medications and staff direction. as of 0, he appears to be asleep. no distress noted. will continue to monitor closely.
--- NOTE | 2017-05-31 23:49 | NUR ---
PRN norco given for lower abdominal pain 12/20
[2017-06-01] MEDS: HYDROCODONE/APAP 5-325MG TABLET PO PRN ×3 (07:01→19:22)
[2017-06-01 07:30] VITALS: BP 101/58
[2017-06-01] MEDS: FERROUS SULFATE 325 MG TABEC PO SCH ×3 (08:21→21:21)
[2017-06-01] MEDS: TRIHEXYPHENIDYL HCL 2 MG TABLET PO SCH ×3 (08:21→16:40)
[2017-06-01] MEDS: DIVALPROEX 500 MG TABLET.DR PO SCH (08:21)
[2017-06-01] MEDS: MULTIVITAMINS,THERAPEUTIC TABLET PO SCH (08:21)
[2017-06-01] MEDS: chlorproMAZINE 25 MG TABLET PO SCH ×3 (08:22→16:40)
[2017-06-01] MEDS: LIDOCAINE 5% PATCH TD SCH ×2 (08:29→13:15)
[2017-06-01 08:37] LABS: BASOPHILS % (AUTO) 0.6 % (0.0-2.0); EOSINOPHILS # (AUTO) 0.4 K/uL (0.0-0.7); EOSINOPHILS % (AUTO) 5.9 % (0.0-7.0); HEMOGLOBIN 10.3 g/dL (12.5-16.3); LYMPHOCYTES # (AUTO) 1.5 K/uL (20.0-40.0); LYMPHOCYTES % (AUTO) 22.1 % (20.5-51.5); MEAN CORPUSCULAR HEMOGLOBIN 26.5 uug (23.8-33.4); MEAN CORPUSCULAR HGB CONC 33 g/dL (32.5-36.3); MEAN CORPUSCULAR VOLUME 79.8 fL (73.0-96.2); MONOCYTES # (AUTO) 0.5 K/uL (2.0-10.0); MONOCYTES % (AUTO) 7.8 % (0.0-11.0); NEUTROPHILS # (AUTO) 4.3 K/uL (1.8-8.9); NEUTROPHILS % (AUTO) 63.6 % (38.5-71.5); PLATELET COUNT (AUTO) 283 K/uL (152-348); RED BLOOD CELL COUNT(AUTO) 3.88 MIL/uL (4.06-5.63); WHITE BLOOD COUNT (AUTO) 6.7 K/uL (3.6-10.2)
[2017-06-01 08:45] LABS: CREATININE 0.7 mg/dL (0.6-1.3); POTASSIUM 4.9 mmol/L (3.5-5.1)
[2017-06-01] MEDS: VALPROIC ACID 250 MG/5 ML LIQUID UDC PO SCH ×3 (13:03→21:21)
[2017-06-01 15:26] VITALS: BP 95/57
[2017-06-01 20:54] VITALS: BP 104/61
--- NOTE | 2017-06-01 21:40 | NUR ---
DEPAKENE WAS ACCIDENTALLY SPILLED BEFORE ATTEMPT AT MEDICATION ADMINISTRATION. SURVEY COORDINATOR INTIRA NOTIFIED AND ASKED TO OVER RIDE IN [facility].
[2017-06-01] MEDS ORDERED: VALPROIC ACID 250 MG/5 ML LIQUID UDC ONE (21:43)
--- NOTE | 2017-06-01 22:02 | NUR ---
RECEIVED Pt ASKING FOR PAIN MEDICATION AT 1914, NORCO ADMINISTERED WITH MODERATE EFFECT. WHEN RN APPROACH Pt IN HIS ROOM TO ADMINISTER SCHEDULED DEPOKENE AND FEOSOL, RN REMOVED WHAT APPEARED TO BE SEVERAL EMPTY CUPS FROM THE Pt's BEDSIDE TABLE. UPON DOING THAT, Pt BECAME EXPLOSIVE AND BEGAN YELLING AND SCREAMING AT RN THAT SOAP WAS IN ONE OF THE CUPS. Pt WAS VERBALLY ABUSIVE SCREAMING AT RN, "YOU'RE STUPID, THAT WAS MINE!" WHEN RN ATTEMPTED TO REDIRECT, Pt YELLED, "KISS MY ASS!!" Pt IS BELLIGERENT, LABILE, AND AGGRESSIVE WHEN LIMITS ARE SET, AND MULTIPLE DEMANDS ARE NOT IMMEDIATELY MET. Pt THEN REFUSED HS MEDS. Pt IS ARGUMENTATIVE, HOSTILE, AND UNCOOPERATIVE
--- NOTE | 2017-06-02 06:28 | NUR ---
AFTER Pt's OUTBURST, HE REMAINED IN HIS ROOM, DID NOT REQUEST PAIN MEDICATION THE ENTIRE SHIFT.
[2017-06-02 07:30] VITALS: BP 107/66
[2017-06-02] MEDS: HYDROCODONE/APAP 5-325MG TABLET PO PRN ×3 (08:03→20:44)
[2017-06-02] MEDS: MULTIVITAMINS,THERAPEUTIC TABLET PO SCH (08:04)
[2017-06-02] MEDS: TRIHEXYPHENIDYL HCL 2 MG TABLET PO SCH ×3 (08:05→16:39)
[2017-06-02] MEDS: chlorproMAZINE 25 MG TABLET PO SCH ×3 (08:05→16:39)
[2017-06-02] MEDS: FERROUS SULFATE 325 MG TABEC PO SCH ×2 (08:05→20:33)
[2017-06-02] MEDS: LIDOCAINE 5% PATCH TD SCH ×2 (08:06→09:00)
[2017-06-02] MEDS: VALPROIC ACID 250 MG/5 ML LIQUID UDC PO SCH ×3 (08:06→20:33)
[2017-06-02 15:35] VITALS: BP 112/72
--- NOTE | 2017-06-02 17:00 | NUR ---
Gps/Hand Rigger- re offered lidoderm patch , patient refused, claimed does not need it, it does not help much. Refused to attend group therapy, stayed in his room reading magazine . No outburst nor agitation noted, had been pleasant to the staff .
[2017-06-02 20:39] VITALS: BP 107/60
--- NOTE | 2017-06-02 23:48 | NUR ---
PATIENT RECEIVED IN ROOM AWAKE. PATIENT IN NO APPARENT DISTRESS WILL CONTINUE TO MONITOR. PATIENT COMPLAINT WITH MEDICATION WAS WITNESSED TAKING MEDICATION FROM CHARGE NURSE AND MYSELF. NO AGGRESSIVE OR COMBATIVE BEHAVIOR NOTED WILL CONTINUE TO MONITOR. PATIENT STATES HAVING 8/10 TO LEFT KNEE, PAIN MEDICATION GIVEN ORDERED.
[2017-06-03] MEDS: TEMAZEPAM 7.5 MG CAPSULE PO PRN ×2 (01:38→22:14)
[2017-06-03] MEDS: HYDROCODONE/APAP 5-325MG TABLET PO PRN ×4 (02:47→20:56)
[2017-06-03 07:30] VITALS: BP 107/80
[2017-06-03] MEDS: TRIHEXYPHENIDYL HCL 2 MG TABLET PO SCH ×3 (08:23→16:27)
[2017-06-03] MEDS: chlorproMAZINE 25 MG TABLET PO SCH ×3 (08:23→16:27)
[2017-06-03] MEDS: MULTIVITAMINS,THERAPEUTIC TABLET PO SCH (08:23)
[2017-06-03] MEDS: FERROUS SULFATE 325 MG TABEC PO SCH ×2 (08:23→20:00)
[2017-06-03] MEDS: VALPROIC ACID 250 MG/5 ML LIQUID UDC PO SCH ×3 (08:24→20:00)
[2017-06-03] MEDS: LIDOCAINE 5% PATCH TD SCH (08:33)
[2017-06-03 15:26] VITALS: BP 108/73
[2017-06-03 20:42] VITALS: BP 110/65
--- NOTE | 2017-06-03 20:54 | NUR ---
PATIENT RECEIVED IN ROOM AWAKE. PATIENT IN NO APPARENT DISTRESS WILL CONTINUE TO MONITOR. PATIENT COMPLAINT WITH MEDICATION, PATIENT OPENED MOUTH AFTER TAKING MEDICATION WAS WITNESSED TAKING MEDICATION FROM CHARGE NURSE AND MYSELF. NO AGGRESSIVE OR COMBATIVE BEHAVIOR NOTED WILL CONTINUE TO MONITOR.
[2017-06-04] MEDS: HYDROCODONE/APAP 5-325MG TABLET PO PRN ×2 (04:13→10:26)
[2017-06-04] MEDS: LORAZEPAM 0.5 MG TABLET PO PRN (05:43)
[2017-06-04 07:30] VITALS: BP 121/61
[2017-06-04] MEDS: LIDOCAINE 5% PATCH TD SCH (09:00)
[2017-06-04] MEDS: MULTIVITAMINS,THERAPEUTIC TABLET PO SCH (09:01)
[2017-06-04] MEDS: VALPROIC ACID 250 MG/5 ML LIQUID UDC PO SCH ×2 (09:01→12:52)
[2017-06-04] MEDS: TRIHEXYPHENIDYL HCL 2 MG TABLET PO SCH ×2 (09:02→12:53)
[2017-06-04] MEDS: chlorproMAZINE 25 MG TABLET PO SCH ×2 (09:03→12:54)
[2017-06-04] MEDS: FERROUS SULFATE 325 MG TABEC PO SCH (09:03)
--- NOTE | 2017-06-04 11:01 | NUR ---
DC Note: Patient is choosing to be discharged without penitentiary placement, and has stated he will use public transportation. He has completed and signed the homeless patient waiver form. Patient will be provided with a taxi voucher. KEV unable to verify if patient has financial income in the bank. Patient is able to plan for self-care. He is alert and oriented x4. KEV notified patient's girlfriend Alexandra of patient's discharge plans [[phone]]. Patient refused to be discharged to a fpc facility and homeless penitentiary, however was still provided with a homeless resource packet. Homeless resource packet includes a list of emergency shelters, housing resources, drop in centers, and showers and hot meals centers. This also included the Homeless Information Hotline (030)-063-2662 or 211, [facility] [phone])- [phone], and the [facility] [phone]. Patient was referred to [facility] [phone] for Fiber Design Engineer referrals. Patient was provided with outpatient mental health resources to [facility] Crisis [facility] , [facility] , and the National Suicide Prevention Lifeline . Patient was also provided a brief substance abuse intervention. He was provided outpatient substance abuse referrals for [facility] [[phone]], [facility] [[phone]], and [facility] [[phone]]. Addendum: 06/04/17 at 1131 by KATRINA ANGULO Patient was also provided substance abuse referrals for [facility] [ ], [facility] [ ], and [facility] [ ]. Patient was encouraged to present at [facility], [address] [place] [id number] at 9am on 06/05/17 for intake screening.
--- NOTE | 2017-06-04 15:38 | NUR ---
1430 Discharged intruction given to patient regarding his medications to continue at home, prescriptions both psychiatry and medicine and instructed to fbe filled to his pharmacy- patient verbalized understanding. 1530 Patient alert and ox4, denies SI/Hi. No hallucination/no delusions noted. Patient discharged via taxi voucher
== END 2017-06-04 15:30 | disposition home or self-care (01) | DRG 885 ==
LOC: ER 14:30 → GPS 18:16
PROVIDERS: ADMIT Psychiatry & Neurology Psychiatry; ATTEND Internal Medicine
DX: F25.0 Schizoaffective disorder, bipolar type (principal); E44.0 Moderate protein-calorie malnutrition; R45.851 Suicidal ideations; G89.29 Other chronic pain; F14.10 Cocaine abuse, uncomplicated; D50.0 Iron deficiency anemia secondary to blood loss (chronic); Z79.899 Other long term (current) drug therapy; K44.9 Diaphragmatic hernia without obstruction or gangrene; Z85.028 Personal history of other malignant neoplasm of stomach; N40.0 Benign prostatic hyperplasia without lower urinary tract symptoms; Z59.0 Homelessness; Z91.5 Personal history of self-harm; Z68.23 Body mass index [BMI] 23.0-23.9, adult; K29.70 Gastritis, unspecified, without bleeding
CPT/HCPCS: 36415; 80164; 83550; 83735; 84100; 84443; 85025; 90686; 90732; A4663; J3490; Q0161